=== PATIENT | female | born 2000 | race Caucasian/White ===

== ENCOUNTER 2022-12-25 06:04 | Inpatient (IN) | payer BC ==
[~2022-12-25 06:04] MED LIST: Bupivacaine 0.25% 10 ML SDV ONE; ePHEDrine 50 MG/ML SDV ONE
[2022-12-25] MEDS ORDERED: Lidocaine 1% 50 ML MDV INJECT ONE (06:19)
[2022-12-25] MEDS ORDERED: Nalbuphine 10 MG/0.5 ML Syringe IVPUSH PRN (06:19)
[2022-12-25] MEDS ORDERED: Ondansetron 4 MG/2 ML SDV IVPUSH PRN (06:19)
[2022-12-25] MEDS ORDERED: Calcium Carbonate 500 MG Tab.Chew PO PRN (06:19)
[2022-12-25] MEDS ORDERED: Sodium Chloride 0.9% 10 ML Syringe FLUSH PRN (06:19)
[2022-12-25] MEDS ORDERED: Oxytocin/Lactated Ringers 10 UNIT/1,000 ML BAG IV SCH ×2 (06:30→07:15)
[2022-12-25 06:38] LABS: BASOPHILS PERCENT AUTO 0.3 % (0.0-1.0); EOSINOPHILS ABSOLUTE AUTO 0.2 K/mm3 (0.0-0.4); EOSINOPHILS PERCENT AUTO 1.2 % (0.0-6.0); HEMATOCRIT 36.5 % (37.0-47.0); HEMOGLOBIN 12.4 gm/dl (12.0-16.0); IMMATURE GRAN ABSOLUTE AUTO 0.12 K/mm3 (0.00-0.05); LYMPHOCYTES ABSOLUTE AUTO 1.6 K/mm3 (1.0-4.8); MEAN CORPUSCULAR HEMOGLOBIN 28.1 pg (28.0-32.0); MEAN CORPUSCULAR VOLUME 82.6 fl (83.0-99.0); MEAN PLATELET VOLUME 10.2 fl (9.4-12.3); MONOCYTES ABSOLUTE AUTO 0.5 K/mm3 (0.0-0.8); NEUTROPHILS ABSOLUTE AUTO 9.9 K/mm3 (1.8-7.7); NEUTROPHILS PERCENT AUTO 80.5 % (41.0-71.0); PLATELET COUNT,PLT 208 K/mm3 (150-400); RED BLOOD CELL COUNT 4.42 M/mm3 (4.10-5.30); WHITE BLOOD CELL COUNT,WBC 12.29 K/mm3 (3.9-11.3)
[2022-12-25] MEDS: Lactated Ringers 1,000 ML IV SCH ×2 (07:06→09:49)
[2022-12-25 07:13] LABS: HEPATITIS C AB NEGATIVE (NEGATIVE)
[2022-12-25] MEDS ORDERED: ePHEDrine 50 MG/ML SDV IVPUSH PRN (08:12)
[2022-12-25] MEDS ORDERED: diphenhydrAMINE 50 MG/ML SDV IVPUSH PRN (08:12)
[2022-12-25] MEDS ORDERED: fentaNYL 100 MCG/2 ML SDV EPIDUR PRN (08:12)
[2022-12-25] MEDS: Bupivacaine/fentaNYL/NS 100 ML Bag EPIDUR PRN ×3 (08:26→18:42)
[2022-12-25] MEDS ORDERED: Tranexamic Acid 1,000 MG/10 ML Vial ONE (19:27)
[2022-12-25] MEDS ORDERED: Witch Hazel Medicated Pads 40/Jar TOP PRN (21:53)
[2022-12-25] MEDS ORDERED: Benzocaine/Menthol 20%-0.5% Spray 78 GM Cannister TOP PRN (21:53)
[2022-12-25] MEDS ORDERED: Docusate Sodium 100 MG Cap PO PRN (21:53)
[2022-12-25] MEDS ORDERED: Ibuprofen 600 MG Tab PO PRN (21:53)
[2022-12-25] MEDS ORDERED: Acetaminophen 325 MG Tab PO PRN (21:53)
[2022-12-26] MEDS: buPROPion 150 MG Tab.ER PO SCH (10:07)
[2022-12-27] MEDS: buPROPion 150 MG Tab.ER PO SCH (08:14)
== END 2022-12-27 09:45 | disposition home or self-care (01) | DRG 560 ==
LOC: JD.OBCHECK 06:04 → JD.OB 06:11 → JD.OBCHECK 06:19 → JD.OB 06:54 → OBSVTOIN 21:14 → JD.OB 21:15
PROVIDERS: ADMIT Obstetrics & Gynecology; ATTEND Obstetrics & Gynecology
PROC: 10E0XZZ Delivery of Products of Conception, External Approach (ICD-10-PCS; principal; 2022-12-25)
PROC: 3E033VJ Introduction of Other Hormone into Peripheral Vein, Percutaneous Approach (ICD-10-PCS; 2022-12-25)
PROC: 3E0R3BZ Introduction of Anesthetic Agent into Spinal Canal, Percutaneous Approach (ICD-10-PCS; 2022-12-25)
PROC: 00HU33Z Insertion of Infusion Device into Spinal Canal, Percutaneous Approach (ICD-10-PCS; 2022-12-25)
PROC: 0KQM0ZZ Repair Perineum Muscle, Open Approach (ICD-10-PCS; 2022-12-25)
DX: O42.02 Full-term premature rupture of membranes, onset of labor within 24 hours of rupture (principal); Z37.0 Single live birth; O34.03 Maternal care for unspecified congenital malformation of uterus, third trimester; Q51.3 Bicornate uterus; O36.0930 Maternal care for other rhesus isoimmunization, third trimester, not applicable or unspecified; O70.1 Second degree perineal laceration during delivery; Z3A.39 39 weeks gestation of pregnancy; O76 Abnormality in fetal heart rate and rhythm complicating labor and delivery
CPT/HCPCS: 36415; 51701; 51702; 59025; 59409; 85025; 86592; 86803; 86850; 86900; 86901; J1200; J2405; J2590; J3490; J7120

== ENCOUNTER 2025-01-15 23:25 | Inpatient (IN) | payer BC ==
[2025-01-15] MEDS ORDERED: Oxytocin/0.9 % Sodium Chloride 30 UNIT/500 ML BAG IV SCH (23:45)
[2025-01-15] MEDS ORDERED: Sodium Chloride 0.9% 10 ML Syringe FLUSH PRN (23:53)
[2025-01-15] MEDS ORDERED: Nalbuphine 10 MG/1 ML Vial IVPUSH PRN (23:53)
[2025-01-15] MEDS ORDERED: Ondansetron 4 MG/2 ML SDV IVPUSH PRN (23:53)
[2025-01-16 00:03] LABS: BASOPHILS ABSOLUTE AUTO 0.1 K/mm3 (0.0-0.2); BASOPHILS PERCENT AUTO 0.5 % (0.0-1.0); EOSINOPHILS ABSOLUTE AUTO 0.1 K/mm3 (0.0-0.4); EOSINOPHILS PERCENT AUTO 1.0 % (0.0-6.0); IMMATURE GRAN ABSOLUTE AUTO 0.19 K/mm3 (0.00-0.05); IMMATURE GRAN PERCENT AUTO 1.7 % (0.0-0.4); LYMPHOCYTES ABSOLUTE AUTO 2.0 K/mm3 (1.0-4.8); LYMPHOCYTES PERCENT AUTO 17.9 % (24.0-44.0); MEAN PLATELET VOLUME 9.1 fl (9.4-12.3); MONOCYTES ABSOLUTE AUTO 0.6 K/mm3 (0.0-0.8); MONOCYTES PERCENT AUTO 5.0 % (0.0-8.0); NEUTROPHILS ABSOLUTE AUTO 8.4 K/mm3 (1.8-7.7); NEUTROPHILS PERCENT AUTO 73.9 % (41.0-71.0); NRBC ABSOLUTE 0.00 (0.00-0.02); NRBC PERCENT 0.0 % (0.0-0.2); PLATELET COUNT,PLT 185 K/mm3 (150-400); RED BLOOD CELL COUNT 4.28 M/mm3 (4.10-5.30); WHITE BLOOD CELL COUNT,WBC 11.36 K/mm3 (3.9-11.3)
[2025-01-16] MEDS: Oxytocin/0.9 % Sodium Chloride 30 UNIT/500 ML BAG IV SCH (02:23)
[2025-01-16] MEDS: Lactated Ringers 1,000 ML IV SCH (02:36)
[2025-01-16] MEDS ORDERED: Magnesium Hydroxide 400 MG/5 ML Susp 30 ML Cup PO PRN (03:19)
[2025-01-16] MEDS ORDERED: Oxytocin/0.9 % Sodium Chloride 30 UNIT/500 ML BAG IV SCH (03:19)
[2025-01-16] MEDS: Benzocaine/Menthol 20%-0.5% Spray 78 GM Cannister TOP PRN (04:20)
[2025-01-16] MEDS: Witch Hazel Medicated Pads 40/Jar TOP PRN (04:20)
[2025-01-16] MEDS: Prenatal Multivitamin with Calcium/Folic Acid/Iron Tab PO SCH (09:29)
[2025-01-16] MEDS: buPROPion 150 MG Tab.ER PO SCH (09:29)
== END 2025-01-17 09:48 | disposition home or self-care (01) | DRG 560 ==
LOC: JD.OBCHECK 23:25 → JD.OB 23:29 → JD.OBCHECK 23:53 → JD.OB 01-16 00:32 → OBSVTOIN 01-16 02:20 → JD.OB 01-16 02:23
PROVIDERS: ADMIT Obstetrics & Gynecology; ATTEND Obstetrics & Gynecology
PROC: 10E0XZZ Delivery of Products of Conception, External Approach (ICD-10-PCS; principal; 2025-01-16)
PROC: 0KQM0ZZ Repair Perineum Muscle, Open Approach (ICD-10-PCS; 2025-01-16)
DX: O42.02 Full-term premature rupture of membranes, onset of labor within 24 hours of rupture (principal); Z37.0 Single live birth; O99.354 Diseases of the nervous system complicating childbirth; O99.344 Other mental disorders complicating childbirth; O36.0930 Maternal care for other rhesus isoimmunization, third trimester, not applicable or unspecified; O34.03 Maternal care for unspecified congenital malformation of uterus, third trimester; F41.8 Other specified anxiety disorders; O70.1 Second degree perineal laceration during delivery; Z3A.38 38 weeks gestation of pregnancy; Z67.41 Type O blood, Rh negative; Q51.3 Bicornate uterus
CPT/HCPCS: 36415; 59025; 59409; 85025; 86592; 86850; 86900; 86901; A9270-GY; J7120; J7999